=== PATIENT | male | born 2000 | race Caucasian/White ===

== ENCOUNTER 2019-12-06 20:56 | Emergency (ER) | payer BC ==
[2019-12-06] MEDS ORDERED: cefTRIAXone 1,000 MG VIAL (IM USE) IM STA (21:45)
[2019-12-06] MEDS ORDERED: WATER FOR IRRIG, STERILE 1,000 ML BTL IRRIGATION ONE (21:46)
[2019-12-06] MEDS ORDERED: DIPH,PERTUS(ACELL)TETVAC-LF 0.5 ML VIAL IM ONE (21:46)
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
[2019-12-07 00:44] VITALS: BP 133/95; PULSE 100; RESP 15; TEMP 98.4
== END 2019-12-07 00:44 | disposition home or self-care (01) ==
LOC: EC 20:56
DX: T25.311A Burn of third degree of right ankle, initial encounter (principal); T31.0 Burns involving less than 10% of body surface; Z23 Encounter for immunization; Z53.29 Procedure and treatment not carried out because of patient's decision for other reasons; X04.XXXA Exposure to ignition of highly flammable material, initial encounter; Y92.89 Other specified places as the place of occurrence of the external cause
CPT/HCPCS: 90715; 99283; 96372; 90471; J0696

== ENCOUNTER 2022-03-26 07:55 | Inpatient (IN) | payer BC ==
[2022-03-26] MEDS ORDERED: HYDROmorphone 1 MG/ML 1 ML SYRINGE IVP STA ×2 (08:04→08:49)
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
[2022-03-26 08:42] LABS: ALT 67 U/L (4-49); AST 107 U/L (17-59); African American GFR (CKD) >90 (>60 ml/min/1.73 sqM); Albumin 4.9 g/dL (3.5-5.0); Alcohol <10 mg/dL; Alkaline Phosphatase 87 U/L (38-126); Anion Gap 15 mmol/L; Blood Urea Nitrogen 20 mg/dL (9-20); Calcium 9.3 mg/dL (8.4-10.2); Carbon Dioxide 20 mmol/L (22-30); Chloride 103 mmol/L (98-107); Glucose 152 mg/dL (74-99); Non-African American GFR(CKD) >90 (>60 ml/min/1.73 sqM); Potassium 3.8 mmol/L (3.5-5.1); Sodium 138 mmol/L (137-145); Total Bilirubin 0.9 mg/dL (0.2-1.3); Total Protein 7.4 g/dL (6.3-8.2)
[2022-03-26 08:43] LABS: Basophils % (A) 0 %; Eosinophils # (A) 0.2 k/uL (0-0.7); Eosinophils % (A) 3 %; HGB 14.8 gm/dL (13.0-17.5); Lymphocytes % (A) 28 %; MCH 32.5 pg (25.0-35.0); MCHC 33.7 g/dL (31.0-37.0); MCV 96.5 fL (80.0-100.0); Mean Platelet Volume 7.3; Monocytes # (A) 0.5 k/uL (0-1.0); Monocytes % (A) 7 %; Neutrophils # (A) 4.3 k/uL (1.3-7.7); Neutrophils % (A) 60 %; Platelet Count 261 k/uL (150-450); RBC 4.56 m/uL (4.30-5.90); RDW 12.4 % (11.5-15.5); WBC 7.2 k/uL (3.8-10.6)
[2022-03-26 08:48] LABS: Prothrombin Time 10.9 sec (9.0-12.0)
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
[2022-03-26 08:52] LABS: Partial Thromboplastin Time 21.3 sec (22.0-30.0)
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
[2022-03-26] MEDS ORDERED: NALOXONE 0.4 MG/ML 1 ML VIAL IV PRN (09:08)
[2022-03-26] MEDS ORDERED: ACETAMINOPHEN TAB 325 MG TAB PO PRN (09:08)
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
--- NOTE | 2022-03-26 10:25 | XR ---
EXAMINATION TYPE: XR tibia fibula LT DATE OF EXAM: 03/26/2022 CLINICAL HISTORY: Post reduction and casting TECHNIQUE: Two views of the left leg are obtained. COMPARISON: Prior left leg x-ray earlier today and left ankle CT earlier today. FINDINGS: New overlying splint material seen. Comminuted displaced fractures through the distal tibia l and fibular diaphysis remain present with improved alignment on frontal view after reduction and ca sting from most recent CT though there is persistent fairly stable impaction and posterior displaceme nt of distal fracture fragments on lateral view noted after reduction and splinting. IMPRESSION: As above.
[2022-03-26] MEDS: HYDROmorphone 0.5 MG/0.5 ML SYRINGE IVP PRN ×3 (10:35→17:19)
[2022-03-26] MEDS ORDERED: NICOTINE 21MG/24HR PATCH TRANSDERM STA (10:42)
[2022-03-26] MEDS: SODIUM CHLORIDE 0.9% 1,000 ML IV SCH (10:55)
[2022-03-26] MEDS: HYDROmorphone 1 MG/ML 1 ML SYRINGE IVP PRN ×3 (11:45→19:46)
[2022-03-26 12:28] LABS: Cocaine Screen,Urine Not Detected (NotDetected); Opiate Screen,Urine Detected (NotDetected); Phencyclidine Screen,Urine Not Detected (NotDetected); Urn Cannabinoid Scrn Not Detected (NotDetected)
[2022-03-26 12:29] LABS: Amphetamine Screen,Urine Not Detected (NotDetected); Barbiturate Screen,Urine Not Detected (NotDetected); Benzodiazepines Screen,Urine Detected (NotDetected); Methadone Screen, Urine Not Detected (NotDetected); Oxycodone Screen, Urine Not Detected (NotDetected); Tricyclic Antidepressant,Urine Not Detected (NotDetected)
[2022-03-26] MEDS: ONDANSETRON 4 MG/2 ML VIAL IVP PRN (19:46)
[2022-03-27] MEDS: HYDROmorphone 1 MG/ML 1 ML SYRINGE IVP PRN ×4 (01:41→19:58)
[2022-03-27] MEDS: ONDANSETRON 4 MG/2 ML VIAL IVP PRN ×2 (01:41→09:13)
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
[2022-03-27] MEDS: SODIUM CHLORIDE 0.9% 1,000 ML IV SCH (08:29)
[2022-03-27] MEDS ORDERED: guaiFENesin-DM 600/30MG 1 EACH TAB.ER.12H PO PRN (10:43)
[2022-03-27] MEDS ORDERED: LACTATED RINGERS 1,000 ML IV ONE ×3 (11:02→17:00)
[2022-03-27] MEDS ORDERED: DEXAMETHASONE SOD PHOSPHATE 4 MG/ML 1 ML VIAL IVP ONE (11:26)
[2022-03-27] MEDS ORDERED: SCOPOLAMINE 1 MG/72 HR PATCH TRANSDERM ONE (11:26)
[2022-03-27] MEDS ORDERED: fentaNYL (PF) 50 MCG/ML 2 ML AMP IVP ONE (11:27)
[2022-03-27] MEDS ORDERED: TRANEXAMIC ACID 1,000 MG in SODIUM CHLORIDE 0.9% 100 ML IVPB ONE ×4 (11:28)
[2022-03-27] MEDS ORDERED: fentaNYL (PF) 50 MCG/ML 2 ML AMP IV ONE (12:28)
[2022-03-27 14:24] VITALS: BMI 18.6
[2022-03-27] MEDS ORDERED: HYDROmorphone 0.5 MG/0.5 ML SYRINGE IVP ONE (14:26)
[2022-03-27] MEDS ORDERED: ONDANSETRON 4 MG/2 ML VIAL IVP ONE (15:17)
[2022-03-27] MEDS ORDERED: fentaNYL (PF) 50 MCG/ML 2 ML AMP ONE (15:54)
[2022-03-27] MEDS ORDERED: PROPOFOL 10 MG/ML 20 ML VIAL IV ONE (15:54)
[2022-03-27] MEDS ORDERED: HYDROmorphone (PF) 1 MG/ML ONE (15:54)
[2022-03-27] MEDS ORDERED: TRANEXAMIC ACID IN NACL,ISO-OS 1,000 MG/100 ML BAG ONE (15:54)
[2022-03-27] MEDS ORDERED: MIDAZOLAM 2 MG/2 ML VIAL ONE (15:54)
[2022-03-27] MEDS ORDERED: LIDOCAINE 2% INJ 20 MG/ML (2 ML VIAL) ONE (15:54)
[2022-03-27] MEDS ORDERED: ROCURONIUM 10 MG/ML (5 ML VIAL) IV ONE (15:54)
[2022-03-27] MEDS ORDERED: NEOSTIGMINE 1 MG/ML 10 ML VIAL ONE (15:54)
[2022-03-27] MEDS ORDERED: GLYCOPYRROLATE 0.2 MG/ML 2 ML VIAL ONE (15:54)
[2022-03-27] MEDS ORDERED: SODIUM CHLORIDE 0.9% 1,000 ML IV SCH (18:15)
--- NOTE | 2022-03-27 18:48 | XR ---
EXAMINATION TYPE: XR tibia fibula LT DATE OF EXAM: 03/27/2022 COMPARISON: NONE HISTORY: Tibia surgery TECHNIQUE: Limited view FINDINGS: Multiple fluoroscopic images show placement of intramedullary tiffany and transverse screws fix ing the comminuted fracture of the distal shaft of the tibia. There is also adjacent fracture of the fibula. Tibial fragments are in reasonable anatomic position. There is 50% lateral displacement of th e distal fibular fragment. IMPRESSION: No complicating process seen.
[2022-03-27] MEDS ORDERED: NICOTINE 21MG/24HR PATCH TRANSDERM STA (19:12)
[2022-03-27] MEDS: HYDROmorphone 0.5 MG/0.5 ML SYRINGE IVP PRN (21:33)
[2022-03-28] MEDS: HYDROmorphone 1 MG/ML 1 ML SYRINGE IVP PRN ×2 (00:26→05:46)
[2022-03-28] MEDS: HYDROmorphone 0.5 MG/0.5 ML SYRINGE IVP PRN ×2 (02:50→07:34)
[2022-03-28 04:02] VITALS: RESP 17
[2022-03-28] MEDS ORDERED: HYDROmorphone 0.5 MG/0.5 ML SYRINGE IVP PRN (07:00)
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
[2022-03-28] MEDS ORDERED: HYDROcodone/APAP 7.5-325MG 1 EACH TAB PO PRN (08:38)
[2022-03-28 08:51] VITALS: BP 149/87; PULSE 92; TEMP 98.7
--- NOTE | 2022-03-28 08:56 | FL ---
Fluoroscopy History: IM NAIL LEFT TIBIA IM NAILING, LT TIBFIB. 3 MIN 35 SEC FL. 11 IMAGES SAVED.
[2022-03-28] MEDS: HYDROcodone/APAP 5-325MG 1 EACH TAB PO PRN ×2 (09:07→12:08)
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
== END 2022-03-28 12:25 | disposition home or self-care (01) | DRG 492 ==
LOC: EC 07:55 → 6NMEDSUR 09:09 → OBSVTOIN 03-27 11:36
PROVIDERS: ADMIT Orthopaedic Surgery; ATTEND Orthopaedic Surgery
PROC: 0QSH36Z Reposition Left Tibia with Intramedullary Internal Fixation Device, Percutaneous Approach (ICD-10-PCS; principal; 2022-03-27 15:20)
DX: S82.392A Other fracture of lower end of left tibia, initial encounter for closed fracture (principal); M31.19 Other thrombotic microangiopathy; S82.452A Displaced comminuted fracture of shaft of left fibula, initial encounter for closed fracture; V27.0XXA Motorcycle driver injured in collision with fixed or stationary object in nontraffic accident, initial encounter; Y92.410 Unspecified street and highway as the place of occurrence of the external cause
CPT/HCPCS: 29515; 36415; 70450; 71045; 71260; 72125; 72170; 74177; 80053; 80306; 80320; 85025; 85610; 85730; 86850; 86900; 86901; 93005; 96374; 96375; 96376; 99291

== ENCOUNTER → 2023-06-22 | Outpatient (CLI) | payer BC ==
[2023-06-22 17:24] LABS: INR 1.1 (<1.2); Partial Thromboplastin Time 25.3 sec (22.0-30.0); Prothrombin Time 11.5 sec (10.0-12.5)
[2023-06-23 02:40] LABS: HCT 45.4 % (39.6-50.0); HGB 15.2 g/dL (13.0-17.0); MCHC 33.5 g/dL (32.0-37.0); MCV 92.7 FL (80.0-97.0); Mean Platelet Volume 9.5 FL (9.5-12.2); NRBC Per 100 WBC 0 X 10*3/uL (0.00-0.01); Platelet Count 283 X 10*3/uL (140-440); RDW 11.9 % (11.5-14.5); WBC 11.01 X 10*3/uL (4.50-10.00)
[2023-06-23 03:18] LABS: ALT 20 U/L (10-49); AST 19 U/L (14-35); Albumin 5.2 g/dL (3.8-4.9); Albumin/Globulin Ratio 2.17 Ratio (1.60-3.17); Alkaline Phosphatase 73 U/L (41-126); BUN/Creat Ratio 20.33 Ratio (12.00-20.00); Blood Urea Nitrogen 18.3 mg/dL (9.0-27.0); Calcium 10.1 mg/dL (8.7-10.3); Carbon Dioxide 23.9 mmol/L (21.6-31.8); Chloride 99 mmol/L (96-109); Globulin 2.4 g/dL (1.6-3.3); Glucose 90 mg/dL (70-110); Potassium 4.7 mmol/L (3.5-5.5); Sodium 137 mmol/L (135-145); Total Bilirubin 0.7 mg/dL (0.3-1.2); Total Protein 7.6 g/dL (6.2-8.2)
== END | disposition home or self-care (01) ==
LOC: LABPAT 15:55
PROVIDERS: ATTEND Orthopaedic Surgery
DX: T84.623A Infection and inflammatory reaction due to internal fixation device of left tibia, initial encounter (principal)
CPT/HCPCS: 80053; 82306; 85027; 85610; 85730

== ENCOUNTER 2023-06-29 10:34 | Day surgery (SDC) | payer BC ==
[~2023-06-29 10:34] MED LIST: ACETAMINOPHEN TAB 500 MG TAB PO PRN; GABAPENTIN 300 MG CAP PO PRN; ONDANSETRON 4 MG/2 ML VIAL IVP PRN; TRANEXAMIC 1,000 MG/100ML-NACL 1,000 MG in SALINE 1 100ML.BAG IVPB PRN
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
[2023-06-29] MEDS ORDERED: droPERidol 5 MG/2 ML VIAL IVP ONE (11:17)
[2023-06-29] MEDS ORDERED: HYDROmorphone 0.5 MG/0.5 ML SYRINGE IVP PRN (11:17)
[2023-06-29] MEDS ORDERED: DEXAMETHASONE SOD PHOSPHATE 4 MG/ML 1 ML VIAL IV ONE (11:17)
[2023-06-29] MEDS ORDERED: LIDOCAINE 1% (10MG/ML) FOR IV START INTRADERMA PRN (11:17)
[2023-06-29] MEDS ORDERED: LACTATED RINGERS 1,000 ML IV SCH (11:17)
[2023-06-29] MEDS ORDERED: ONDANSETRON 4 MG/2 ML VIAL IVP ONE (11:17)
[2023-06-29] MEDS ORDERED: SCOPOLAMINE 1 MG/72 HR PATCH TRANSDERM ONE (11:44)
[2023-06-29] MEDS ORDERED: PROPOFOL 10 MG/ML 20 ML VIAL IV ONE (12:11)
[2023-06-29] MEDS ORDERED: SUCCINYLCHOLINE CHLORIDE 200 MG/10 ML VIAL IV ONE (12:11)
[2023-06-29] MEDS ORDERED: fentaNYL (PF) 50 MCG/ML 2 ML AMP ONE (12:11)
[2023-06-29] MEDS ORDERED: HYDROmorphone (PF) 1 MG/ML ONE (12:11)
[2023-06-29] MEDS ORDERED: MIDAZOLAM 2 MG/2 ML VIAL ONE (12:11)
[2023-06-29] MEDS ORDERED: LIDOCAINE 1% INJ 10MG/ML (20 ML MDV) ONE (12:11)
[2023-06-29] MEDS ORDERED: ceFAZolin 1,000 MG in SODIUM CHLORIDE 0.9% 1,000 ML IRRIGATION ONE ×4 (12:33)
[2023-06-29] MEDS ORDERED: LIDOCAINE 1%-EPI 1:100,000 50 ML VIAL SQ ONE (12:37)
[2023-06-29] MEDS ORDERED: SENNOSIDES-DOCUSATE SODIUM 1 EACH TAB PO PRN (12:50)
[2023-06-29] MEDS ORDERED: HYDROcodone/APAP 5-325MG 1 EACH TAB PO PRN (12:50)
[2023-06-29] MEDS ORDERED: LACTATED RINGERS 1,000 ML IV ONE ×2 (13:04)
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
--- NOTE | 2023-06-29 13:14 | FL ---
EXAMINATION TYPE: FL guidance operating room, XR tibia fibula LT Intraoperative/procedural fluoroscop ic services were provided. Total fluoroscopy time is 1 second seconds with a total of 3 submitted jeremiah ges to PACS. Please see the operative/procedural note for further details. DAP: 0.0148 Gycm2
[2023-06-29 13:34] VITALS: TEMP 97.2
[2023-06-29 13:58] VITALS: RESP 18
[2023-06-29 14:23] VITALS: BP 121/83; PULSE 70
== END 2023-06-29 14:18 | disposition home or self-care (01) ==
LOC: OR 10:34
PROVIDERS: ATTEND Orthopaedic Surgery
DX: T84.84XA Pain due to internal orthopedic prosthetic devices, implants and grafts, initial encounter (principal); M25.579 Pain in unspecified ankle and joints of unspecified foot; Z47.2 Encounter for removal of internal fixation device; V29.99XA Rider (driver) (passenger) of other motorcycle injured in unspecified traffic accident, initial encounter
CPT/HCPCS: 73590; 20680; 11042; J2250; J0330; J1100; J0690 ×2; J2405; J2001; J3010; J1170; J2704